=== PATIENT | female | born 1975 | race Asian ===

== ENCOUNTER 2017-06-09 09:05 | Emergency (ER) | payer BC, OTHER ==
[~2017-06-09] VITALS: Ht 149.9 cm; Wt 54.4 kg
[~2017-06-09 09:05] MED LIST: OMEP20CA12 PO
--- NOTE | 2017-06-09 09:45 | ED Upper Extremity ---
General Chief Complaint: Upper Extremity Stated Complaint: R SHOULDER SHARP PAIN Nursing Triage Note: PT STATES SHE HAS HAD R SHOULDER PAIN FOR A FEW DAYS, STATES SHE CAN HARDLY MOVE HER ARM TODAY AND FEELS SHARP PAIN IN THE SHOULDER. DENIES INJURY. Nursing Sepsis Screen: No Definite Risk Source: patient, family Exam Limitations: no limitations History of Present Illness Time seen by provider: 09:41 Initial Comments This 41-year-old female presents with a complaint of progressive right shoulder pain without trauma over the last several days. The patient's pain is located over the shoulder joint and is made worse with active or passive abduction. Fortunately there is no loss of sensation or range of motion of the right upper extremity other than that which is limited at the shoulder due to pain. Patient denies associated neck pain. There has been a history of trauma to the right shoulder but several years ago. The patient has had no sequela following the trauma. Patient's past medical history reveals no other joint pain or history of arthritis. The patient works as a nail specialist. Allergies and Home Medications Allergies Coded Allergies: shellfish derived (Unverified Allergy, Severe, ANAPHYLAXIS, 07/17/14) Home Medications Omeprazole 20 Mg Capsule.dr, 20 MG PO DAILY, #30 Prescribed by: MISHA HENSLEY on 07/17/14 0573 Constitutional: No chills, No fever EENTM: no symptoms reported Respiratory: No cough Cardiovascular: No chest pain Gastrointestinal: No abdominal pain, No nausea Genitourinary: no symptoms reported Musculoskeletal: No back pain, joint pain Skin: No change in color, No rash Psychiatric/Neurological: No Symptoms Reported Past Ykqoxms-Pkawgy-Ebjbze Hx Patient Social History Alcohol Use: Denies Use Recreational Drug Use: No Smoking Status: Current Everyday Smoker Type Used: Electronic/Vapor Recent Foreign Travel: No Contact w/Someone Who Travel: No Recent Infectious Disease Expo: No Surgeries History of Surgeries: No Respiratory History of Respiratory Disorde: No Cardiovascular History of Cardiac Disorders: No Neurological History of Neurological Disord: No Reproductive System Hx Reproductive Disorders: No Sexually Transmitted Disease: No Gastrointestinal History of Gastrointestinal Di: No Musculoskeletal History of Musculoskeletal Dis: No Endocrine History of Endocrine Disorders: No Cancer History of Cancer: No Psychosocial History of Psychiatric Problem: No Integumentary History of Skin or Integumenta: No Blood Transfusions History of Blood Disorders: No Reviewed Nursing Assessment Reviewed/Agree w Nursing PMH: Yes Physical Exam Vital Signs Vital Sign - Last 12Hours 06/09/17 09:11 Pulse 76 Resp 16 B/P (MAP) 124/91 Capillary Refill : Less Than 3 Seconds General Appearance: WD/WN, moderate distress HEENT: normal ENT inspection Neck: full range of motion, supple Cardiovascular: regular rate, rhythm, no murmur Respiratory: lungs clear, normal breath sounds Gastrointestinal: normal bowel sounds, non tender, soft Back: normal inspection Shoulder: normal inspection, pain (there is a marked tenderness to attempts at abduction and similar marked pain with attempts at active abduction of the right shoulder. There is no significant inflammation of the joint. There is no crepitus or instability.) Elbow/Forearm: normal inspection, no evidence of injury, Right Wrist: Yes normal inspection, Yes non-tender, Yes no evidence of injury Hand: normal inspection, non-tender, no evidence of injury, Right Neurologic/Tendon: normal sensation, normal motor functions, normal tendon functions Neurologic/Psychiatric: no motor/sensory deficits, alert Skin: normal color, warm/dry Progress/Results/Core Measures Results/Orders Lab Results Laboratory Tests Test 06/09/17 09:55 Range/Units White Blood Count 10.7 4.3-11.0 10^3/uL Red Blood Count 4.37 4.35-5.85 10^6/uL Hemoglobin 13.7 11.5-16.0 G/DL Hematocrit 42 35-52 % Mean Corpuscular Volume 96 80-99 FL Mean Corpuscular Hemoglobin 31 25-34 PG Mean Corpuscular Hemoglobin Concent 33 32-36 G/DL Red Cell Distribution Width 12.8 10.0-14.5 % Platelet Count 310 130-400 10^3/uL Mean Platelet Volume 10.9 H 7.4-10.4 FL Neutrophils (%) (Auto) 74 42-75 % Lymphocytes (%) (Auto) 18 12-44 % Monocytes (%) (Auto) 6 0-12 % Eosinophils (%) (Auto) 0 0-10 % Basophils (%) (Auto) 1 0-10 % Neutrophils # (Auto) 8.0 H 1.8-7.8 X 10^3 Lymphocytes # (Auto) 2.0 1.0-4.0 X 10^3 Monocytes # (Auto) 0.7 0.0-1.0 X 10^3 Eosinophils # (Auto) 0.0 0.0-0.3 10^3/uL Basophils # (Auto) 0.1 0.0-0.1 10^3/uL Neutrophils % (Manual) 68 % Lymphocytes % (Manual) 20 % Monocytes % (Manual) 10 % Eosinophils % (Manual) 1 % Basophils % (Manual) 1 % Band Neutrophils 0 % Blood Morphology Comment NORMAL Erythrocyte Sedimentation Rate 4 0-20 MM/HR Sodium Level 140 135-145 MMOL/L Potassium Level 3.9 3.6-5.0 MMOL/L Chloride Level 104 98-107 MMOL/L Carbon Dioxide Level 23 21-32 MMOL/L Anion Gap 13 5-14 MMOL/L Blood Urea Nitrogen 11 7-18 MG/DL Creatinine 0.75 0.60-1.30 MG/DL Estimat Glomerular Filtration Rate > 60 BUN/Creatinine Ratio 15 Glucose Level 88 70-105 MG/DL Uric Acid 6.2 2.6-7.2 MG/DL Calcium Level 9.0 8.5-10.1 MG/DL Total Bilirubin 0.4 0.1-1.0 MG/DL Aspartate Amino Transf (AST/SGOT) 17 5-34 U/L Alanine Aminotransferase (ALT/SGPT) 11 0-55 U/L Alkaline Phosphatase 41 40-136 U/L Total Protein 7.9 6.4-8.2 GM/DL Albumin 4.3 3.2-4.5 GM/DL My Orders Orders - IVANA KELLEY MD Uric Acid (06/09/17 09:39) Erythrocyte Sedimentation Rate (06/09/17 09:39) Cbc And Manual Diff (06/09/17 09:39) Comprehensive Metabolic Panel (06/09/17 09:39) Shoulder, Right, 3 Views (06/09/17 09:39) Fentanyl Injection (Sublimaze Injection (06/09/17 09:45) Ns Iv 1000 Ml (Sodium Chloride 0.9%) (06/09/17 09:45) Medications Given in ED Current Medications Medications Dose Ordered Sig/Samantha Route Start Time Stop Time Status Last Admin Dose Admin Fentanyl Citrate 50 mcg ONCE ONCE IVP 06/09/17 09:45 06/09/17 09:46 DC 06/09/17 10:06 50 MCG Vital Signs/I&O Vital Sign - Last 12Hours 06/09/17 09:11 Pulse 76 Resp 16 B/P (MAP) 124/91 Blood Pressure Mean: 102 Progress Note : Time: 11:26 Progress Note The patient's x-ray of the right shoulder was unremarkable. Patient's CBC, sedimentation rate, uric acid were all unremarkable. The patient received IV fentanyl with significant improvement in her pain. I discussed the findings with the patient and . We'll treat her bursitis with pain medications and Indocin at home. I asked that she apply sling for comfort and rest at home for the next 3 days. I invited her return to the emergency department she had any further problems or questions. I asked she follow up with her caregiver of choice on Sunday. Departure Impression Impression: Primary Impression: Bursitis of right shoulder Disposition: HOME, SELF-CARE Condition: Improved Departure-Patient Inst. Decision time for Depature: 11:29 Referrals: [facility],LOCAL PHYSICIAN (PCP) Primary Care Physician Patient Instructions: Bursitis (DC) Add. Discharge Instructions: Hydrocodone and Indocin as prescribed. Sling for comfort. Rest at home for the next 3 days. Return of any problems or questions. Follow-up here caregiver of choice on Sunday. All discharge instructions reviewed with patient and/or family. Voiced understanding. IVANA KELLEY MD Jun 09, 2017 09:45
[2017-06-09 10:06] LABS: BASOPHILS # (AUTO) 0.1 10^3/uL (0.0-0.1); BASOPHILS % (AUTO) 1 % (0-10); EOSINOPHILS % (AUTO) 0 % (0-10); LYMPHOCYTES % (AUTO) 18 % (12-44); MEAN CORPUSCULAR HEMOGLOBIN 31 PG (25-34); MEAN CORPUSCULAR HGB CONC 33 G/DL (32-36); MEAN CORPUSCULAR VOLUME 96 FL (80-99); MEAN PLATELET VOLUME 10.9 FL (7.4-10.4); MONOCYTES # (AUTO) 0.7 X 10^3 (0.0-1.0); MONOCYTES % (AUTO) 6 % (0-12); NEUTROPHILS % (AUTO) 74 % (42-75); PLATELET COUNT 310 10^3/uL (130-400); RED BLOOD COUNT 4.37 10^6/uL (4.35-5.85); RED CELL DISTRIBUTION WIDTH 12.8 % (10.0-14.5); WHITE BLOOD COUNT 10.7 10^3/uL (4.3-11.0)
[2017-06-09] MEDS: fentaNYL INJECTION 100 MCG/2 ML AMP IVP ONE ×2 (10:06→11:44)
[2017-06-09] MEDS: NS IV 1000 ML 1,000 ML IV SCH (10:07)
--- NOTE | 2017-06-09 10:18 | Diagnostic Imaging Report ---
INDICATION: History of fall several years ago. Right shoulder pain with decreased range of motion. 3 views of the right shoulder shows no fracture, dislocation or other acute bony abnormality. IMPRESSION: No acute abnormality is seen. MRI may be helpful for further evaluation regarding possible rotator cuff disease. Dictated by: Dictated on workstation # [id number]
[2017-06-09 10:22] LABS: ALANINE AMINOTRANSFERASE 11 U/L (0-55); ALBUMIN 4.3 GM/DL (3.2-4.5); ANION GAP 13 MMOL/L (5-14); ASPARTATE AMINO TRANSFERASE 17 U/L (5-34); BILIRUBIN,TOTAL 0.4 MG/DL (0.1-1.0); BLOOD UREA NITROGEN 11 MG/DL (7-18); BUN/CREATININE RATIO 15; CARBON DIOXIDE 23 MMOL/L (21-32); CHLORIDE 104 MMOL/L (98-107); CREATININE SERUM 0.75 MG/DL (0.60-1.30); GFR ESTIMATED > 60; GLUCOSE 88 MG/DL (70-105); POTASSIUM 3.9 MMOL/L (3.6-5.0); SODIUM 140 MMOL/L (135-145); TOTAL PROTEIN 7.9 GM/DL (6.4-8.2); URIC ACID 6.2 MG/DL (2.6-7.2)
[2017-06-09 10:30] LABS: ERYTHROCYTE SEDIMENTATION RATE 4 MM/HR (0-20)
[2017-06-09 10:40] LABS: BAND NEUTROPHILS 0 %; BASOPHILS % (MANUAL) 1 %; EOSINOPHILS % (MANUAL) 1 %; LYMPHOCYTES % (MANUAL) 20 %; NEUTROPHILS % (MANUAL) 68 %
[2017-06-09 11:59] VITALS: BP 128/84
== END 2017-06-09 11:59 | disposition home or self-care (01) ==
LOC: EDUNIT# 09:05 → ER 09:06
DX: M75.51 Bursitis of right shoulder (principal); F17.290 Nicotine dependence, other tobacco product, uncomplicated; Z87.828 Personal history of other (healed) physical injury and trauma
CPT/HCPCS: 36415; 73030; 80053; 84550; 85007; 85027; 85652; 99282

== ENCOUNTER → 2020-04-19 | Outpatient (CLI) | payer BC ==
--- NOTE | 2020-04-19 15:41 | Diagnostic Imaging Report ---
PROCEDURE: US Non-ob pelvis comp/trans. TECHNIQUE: Multiple realtime grayscale images were obtained of the pelvis in various projections endovaginally. Transabdominal imaging was also performed. INDICATION: Pelvic pain. Patient has had a hysterectomy and bilateral oophorectomy. FINDINGS: The uterus is surgically absent. Ovaries are surgically absent. There is a small cyst in the region of the vaginal cuff measuring approximately 5 and 6 mm in size. No other mass or fluid collection is detected. There is no free fluid. IMPRESSION: Status post hysterectomy and oophorectomy. There are two small cysts in the region of the vaginal cuff. Dictated by: Dictated on workstation # [id number]
--- NOTE | 2020-04-22 16:21 | Diagnostic Imaging Report ---
Indication: Routine screening. Comparison is made with prior mammogram from 03/22/2015. 2-D and 3-D bilateral screening mammography was performed with CAD. Scattered fibroglandular densities are identified bilaterally. No spiculated mass or malignant appearing microcalcifications are seen. Axillae are unremarkable. IMPRESSION: BI-RADS Category 1 No mammographic features suspicious for malignancy are identified. ACR BI-RADS Category 1: Negative. Result letter will be mailed to the patient. Note: At least 10% of breast cancer is not imaged by mammography. Dictated on workstation # [id number]
== END ==
LOC: RAD 14:24
PROVIDERS: ATTEND Surgery
DX: Z12.31 Encounter for screening mammogram for malignant neoplasm of breast (principal); R10.31 Right lower quadrant pain; Z90.710 Acquired absence of both cervix and uterus; Z90.722 Acquired absence of ovaries, bilateral
CPT/HCPCS: 76830; 76856; 77063; 77067

== ENCOUNTER → 2021-12-28 | Outpatient (CLI) | payer BC, OTHER ==
--- NOTE | 2021-12-28 13:07 | Diagnostic Imaging Report ---
INDICATION: Routine screening. COMPARISON: 04/19/2020 and 03/22/2015. TECHNIQUE: 2D and 3D bilateral screening mammography was performed with CAD. FINDINGS: Both breasts are heterogeneously dense, limiting the sensitivity of mammography. The parenchymal pattern is stable. No spiculated mass or malignant-appearing microcalcifications are seen. The axillae are unremarkable. IMPRESSION: No mammographic features suspicious for malignancy are identified. ACR BI-RADS Category 1: Negative. Result letter will be mailed to the patient. Note: At least 10% of breast cancer is not imaged by mammography. Dictated by: Dictated on workstation # [id number]
== END ==
LOC: RAD 09:30
PROVIDERS: ATTEND Surgery
DX: Z12.31 Encounter for screening mammogram for malignant neoplasm of breast (principal)
CPT/HCPCS: 77063; 77067